=== PATIENT | male | born 1945 | race Caucasian/White ===

== ENCOUNTER 2018-04-09 08:52 | Emergency (ER) | payer MEDICARE, OTHER ==
[2018-04-09 09:29] LABS: ABSOLUTE EOSINOPHILS # (AUTO) 0.1 10^3/uL (0.0-0.6); ABSOLUTE LYMPHOCYTES (AUTO) 1.2 10^3/uL (0.5-4.7); ABSOLUTE MONOCYTES (AUTO) 0.3 10^3/uL (0.1-1.4); ABSOLUTE NEUT (AUTO) 4.5 10^3/uL (1.7-8.2); BASOPHILS % (AUTO) 0.5 % (0-2); EOSINOPHILS % (AUTO) 1.9 % (0-6); HEMATOCRIT 44.5 % (37.9-51.0); HEMOGLOBIN 15.4 g/dL (13.5-17.0); LYMPHOCYTES % (AUTO) 19.4 % (13-45); MEAN CORPUSCULAR HEMOGLOBIN 30.6 pg (27.0-33.4); MEAN CORPUSCULAR HGB CONC 34.6 g/dL (32.0-36.0); MEAN CORPUSCULAR VOLUME 89 fl (80-97); MONOCYTES % (AUTO) 5.6 % (3-13); PLATELET COUNT 175 10^3/uL (150-450); RED BLOOD COUNT 5.04 10^6/uL (4.35-5.55); RED CELL DISTRIBUTION WIDTH 13.5 % (11.5-14.0); SEGMENTED NEUTROPHILS % (AUTO) 72.6 % (42-78); TOTAL CELLS COUNTED % (AUTO) 100 %; WHITE BLOOD COUNT 6.2 10^3/uL (4.0-10.5)
[2018-04-09 09:39] LABS: ALANINE AMINOTRANSFERASE 22 U/L (21-72); ALKALINE PHOSPHATASE 77 U/L (38-126); ANION GAP 11 (5-19); ASPARTATE AMINO TRANSFERASE 14 U/L (17-59); BILIRUBIN,DIRECT 0.3 mg/dL (0.0-0.4); BLOOD UREA NITROGEN 20 mg/dL (7-20); CALCIUM 9.1 mg/dL (8.4-10.2); CARBON DIOXIDE 26 mmol/L (22-30); CHLORIDE 108 mmol/L (98-107); GLUCOSE 127 mg/dL (75-110); SODIUM 145.1 mmol/L (137-145); TOTAL PROTEIN 6.6 g/dL (6.3-8.2)
--- NOTE | 2018-04-09 09:53 | ER Document Report ---
ED General - General Chief Complaint: Dizziness Stated Complaint: DIZZINESS Time Seen by Provider: 04/09/18 09:34 Notes: 72-year-old male to the emergency department chief complaint of dizziness. Vomiting. Patient states that he has been going to the chiropractor off and on over the last week and a half due to some pain in the left hip. Has not had any cervical manipulation just manipulation to his hips and legs. Began having some sciatica in the left leg. This morning he woke up and felt like everything was spinning. Had to hold onto the lyman to keep from falling down. [place] like he was about to pass out. Denies any chest pain, shortness of breath. Did have some nausea and felt like he was going to vomit. Did not feel comfortable enough driving so the ambulance was called. Ambulance gave him some medicine for the nausea. States he feels a little bit better. Does have a family history of heart disease. Her had a heart attack at 61. Mother had stroke. TRAVEL OUTSIDE OF THE [place] IN LAST 30 DAYS: No - HPI Onset: Just prior to arrival Onset/Duration: Gradual - Related Data Allergies/Adverse Reactions: No Known Allergies Allergy (Unverified 04/09/18 09:20) Past Medical History - General Information source: Patient - Social History Smoking Status: Never Smoker Cigarette use (# per day): No Chew tobacco use (# tins/day): No Frequency of alcohol use: None Drug Abuse: None Lives with: Spouse/Significant other Family History: CAD, CVA, DM, Malignancy Patient has suicidal ideation: No Patient has homicidal ideation: No Renal/ Medical History: Denies: Hx Peritoneal Dialysis Review of Systems - Review of Systems Constitutional: No symptoms reported. denies: Fever, Malaise, Weakness EENT: Vertigo. denies: Eye pain, Eye discharge, Blurred vision, Double vision, Ear pain, Nose pain, Difficulty swallowing Cardiovascular: denies: Chest pain, Palpitations, Heart racing, Orthopnea, Dyspnea, Syncope Respiratory: denies: Cough, Hurts to breathe, Hemoptysis, Short of breath, Wheezing Gastrointestinal: Nausea, Vomiting. denies: Abdominal pain, Diarrhea, Constipation Genitourinary: denies: Frequency, Flank pain, Hematuria, Incontinence, Urgency Musculoskeletal: See HPI, Other - Left hip pain, sciatica of the left hip. Skin: denies: Dryness, Lesions, Lumps, Rash Hematologic/Lymphatic: denies: Anemia, Blood clots, Easy bleeding, Easy bruising Neurological/Psychological: denies: Confusion, Dementia, Depression, Anxiety, Hallucinations, Sensory change, Weakness, Paralysis, Seizure, Lost consciousness , Headaches, Speech impairment, Numbness Physical Exam - Vital signs Vitals: Temp Resp BP Pulse Ox 98.2 F 16 139/89 H 91 L 04/09/18 09:06 04/09/18 09:06 04/09/18 09:06 04/09/18 09:06 Interpretation: Normal - General General appearance: Appears well, Alert - HEENT Head: Normocephalic, Atraumatic Eyes: Normal Pupils: PERRL - Respiratory Respiratory status: No respiratory distress Chest status: Nontender Breath sounds: Normal Chest palpation: Normal - Cardiovascular Rhythm: Regular Heart sounds: Normal auscultation Murmur: No - Abdominal Inspection: Normal Distension: No distension Bowel sounds: Normal Tenderness: Nontender Organomegaly: No organomegaly - Back Back: Normal, Nontender - Extremities General upper extremity: Normal inspection, Nontender, Normal color, Normal ROM , Normal temperature General lower extremity: Normal inspection, Nontender, Normal color, Normal ROM , Normal temperature, Normal weight bearing. No: Cande's sign - Neurological Neuro grossly intact: Yes Cognition: Normal Orientation: AAOx4 Felix Coma Scale Eye Opening: Spontaneous Felix Coma Scale Verbal: Oriented Felix Coma Scale Motor: Obeys Commands [place] Coma Scale Total: 15 Speech: Normal Motor strength normal: LUE, RUE, LLE, RLE Sensory: Normal Notes: When the head of the bed was dropped with his head looking to the left patient had immediate reproduce symptoms with horizontal's nystagmus present. - Psychological Associated symptoms: Normal affect, Normal mood - Skin Skin Temperature: Warm Skin Moisture: Dry Skin Color: Normal Course - Re-evaluation Re-evalutation: 04/09/18 11:[address] and basic labs EKG unremarkable. Still symptomatic. Will proceed with MRI. Patient does have significant amount of nystagmus as well. At this time cannot definitively rule out a posterior CVA. Will him some meclizine get the MRI and reassess 04/09/18 13:04 MRI does show some areas consistent with some old microvascular ischemic changes. Does have some opacification of the left mastoid area which may represent mastoiditis. Patient's symptoms seem to be provoked on the left side. At this time will treat with antibiotics. Feeling better after meclizine. No major concern at this time for posterior stroke with unremarkable MRI. Patient is comfortable with this plan. Will DC shortly. - Vital Signs Vital signs: Temp Pulse Resp BP Pulse Ox 98.2 F 64 18 138/90 H 98 04/09/18 09:06 04/09/18 09:18 04/09/18 09:18 04/09/18 09:18 04/09/18 09:22 - Laboratory Result Diagrams: 04/09/18 08:30 04/09/18 08:30 Laboratory results interpreted by me: 04/09/18 08:30 Sodium 145.1 H Chloride 108 H Glucose 127 H AST 14 L Discharge - Discharge Clinical Impression: Chronic left mastoiditis, Vertigo Condition: Good Disposition: HOME, SELF-CARE Instructions: Vertigo ([facility]), Meclizine ([facility]) Additional Instructions: In the event that your symptoms are getting worse, you develop fever, neck pain , weakness on one side or the other, confusion or any other concerns please return immediately. Prescriptions: Cefdinir [Omnicef 300 mg Capsule] 1 cap PO BID 10 Days #20 capsule Meclizine HCl 25 mg PO TID #30 tablet
[2018-04-09] MEDS ORDERED: MECLIZINE HCL 25 MG TABLET PO ONE (09:55)
--- NOTE | 2018-04-09 10:22 | RADIOLOGY REPORT (SQ) ---
EXAM DESCRIPTION: CT HEAD WITHOUT COMPLETED DATE/TIME: 04/09/2018 10:14 am REASON FOR STUDY: dizziness, altered COMPARISON: None. TECHNIQUE: Axial images acquired through the brain without intravenous contrast. Images reviewed wi th bone, brain and subdural windows. Additional sagittal and coronal reconstructions were generated. Images stored on PACS. All CT scanners at this facility use dose modulation, iterative reconstruction, and/or weight based d osing when appropriate to reduce radiation dose to as low as reasonably achievable (ALARA). [facility]: Dose Right [facility]: CareDose [facility]: Dose Right [facility]: Teradose 4D [facility]: Monitor My Meds RADIATION DOSE: CT Rad equipment meets quality standard of care and radiation dose reduction techniq ues were employed. CTDIvol: 53.2 mGy. DLP: 1044 mGy-cm. mGy. LIMITATIONS: None. FINDINGS: VENTRICLES: Normal size and contour. CEREBRUM: No masses. No hemorrhage. No midline shift. No evidence for acute infarction. Normal gra y/white matter differentiation. No areas of low density in the white matter. CEREBELLUM: No masses. No hemorrhage. No alteration of density. No evidence for acute infarction. EXTRAAXIAL SPACES: No fluid collections. No masses. ORBITS AND GLOBE: No intra- or extraconal masses. Normal contour of globe without masses. CALVARIUM: No fracture. PARANASAL SINUSES: No fluid or mucosal thickening. SOFT TISSUES: No mass or hematoma. OTHER: No other significant finding. IMPRESSION: NORMAL BRAIN CT WITHOUT CONTRAST. EVIDENCE OF ACUTE STROKE: NO. COMMENT: Quality ID # [id number]: Final reports with documentation of one or more dose reduction techniques (e.g., Automated exposure control, adjustment of the mA and/or kV according to patient size, use of iterative reconstruction technique) TECHNICAL DOCUMENTATION: JOB ID: [id number] 2010 [employer]- All Rights Reserved Reading location - IP/workstation name: [email or web address]
--- NOTE | 2018-04-09 10:50 | RADIOLOGY REPORT (SQ) ---
EXAM DESCRIPTION: CHEST SINGLE VIEW COMPLETED DATE/TIME: 04/09/2018 10:18 am REASON FOR STUDY: near syncope COMPARISON: None. EXAM PARAMETERS: NUMBER OF VIEWS: One view. TECHNIQUE: Single frontal radiographic view of the chest acquired. RADIATION DOSE: NA LIMITATIONS: None. FINDINGS: LUNGS AND PLEURA: No opacities, masses or pneumothorax. No pleural effusion. MEDIASTINUM AND HILAR STRUCTURES: No masses. Contour normal. HEART AND VASCULAR STRUCTURES: Heart normal in size. Normal vasculature. BONES: No acute findings. HARDWARE: None in the chest. OTHER: No other significant finding. IMPRESSION: NO ACUTE RADIOGRAPHIC FINDING IN THE CHEST. TECHNICAL DOCUMENTATION: JOB ID: [id number] [employer]- All Rights Reserved Reading location - IP/workstation name: [email or web address]
--- NOTE | 2018-04-09 12:50 | RADIOLOGY REPORT (SQ) ---
EXAM DESCRIPTION: MRI HEAD WITHOUT COMPLETED DATE/TIME: 04/09/2018 12:25 pm REASON FOR STUDY: DIZZINESS, NYSTAGMUS, COMPARISON: Brain CT scan dated 04/09/2018 TECHNIQUE: Multiplanar imaging includes non-contrasted T1, T2, FLAIR, and Diffusion with ADC map seq uences. Images stored on PACS. LIMITATIONS: None. FINDINGS: ANATOMY: No anomalies. Normal vascular flow voids. Pituitary fossa normal. CSF SPACES: Normal in size and contour. No hemorrhage. CEREBRUM: A few high-signal intensity lesions scattered throughout the white matter on FLAIR imaging with distribution suggesting chronic micro-vascular ischemic change. Sulci and gyri normal in size a nd contour. No evidence of hemorrhage, mass or extraaxial fluid collection. POSTERIOR FOSSA: No signal alteration. No hemorrhage. No edema, masses or mass effect. Internal malik tory canals, cerebello-pontine angles, mastoids normal. DIFFUSION: Negative for acute or sub-acute infarction. ORBITS: No masses. Globes normal. PARANASAL SINUSES: Minimal mucosal thickening is identified in the left maxillary antra. OTHER: There is opacification of several of the mastoid air cells on the left and the possibility of a mastoiditis cannot be excluded. IMPRESSION: MINIMAL MICROVASCULAR ISCHEMIC CHANGE. No other significant intracranial abnormalities were identified. There is opacification of several of the mastoid air cells on the left and the poss ibility of a mastoiditis cannot be excluded. Other findings as noted above EVIDENCE OF ACUTE STROKE: NO. TECHNICAL DOCUMENTATION: JOB ID: [id number] [employer]- All Rights Reserved Reading location - IP/workstation name: [email or web address]
[2018-04-09 13:35] VITALS: BP 136/78
--- NOTE | 2018-04-10 00:18 | EKG REPORT ---
SEVERITY:- NORMAL ECG - SINUS RHYTHM : Confirmed by: Sophy Velazquez MD 10-Apr-2018 00:17:53
== END 2018-04-09 13:35 | disposition home or self-care (01) ==
LOC: ER 08:52
DX: H70.12 Chronic mastoiditis, left ear (principal); R42 Dizziness and giddiness; R11.10 Vomiting, unspecified
CPT/HCPCS: 93005; 99285; 36415; 83735; 85025; 80053; 84484; 70551; 71045; 70450; 93010; A9270